=== PATIENT | male | born 1975 | race Caucasian/White ===

== ENCOUNTER 2016-07-15 16:11 | Emergency (ER) | payer OTHER ==
[2016-07-15 16:24] VITALS: BP 116/101; PULSE 68; RESP 20; TEMP 98.1
--- NOTE | 2016-07-15 16:34 | ED ---
Upper Extremity HPI - General Chief Complaint: Extremity Injury, Upper Stated Complaint: Left Arm Pain Time Seen by Provider: 07/15/16 16:26 Source: patient, RN notes reviewed Mode of arrival: ambulatory Limitations: no limitations - History of Present Illness Initial Comments: 41-year-old male presents for left elbow pain. Patient states he went to lift up his heavy lumbar just with his left arm he felt a pulling in the elbow. Patient states now he has pain with range of motion he has noticed that just tender when he tries to lift anything. Patient states he is left-handed. Patient is no other injury. Patient felt any head injury and loss of consciousness with this. Patient states he was concerned due to the continued pain so he thought that he should be evaluated.Patient denies any recent fever, chills, shortness of breath, chest pain, back pain, abdominal pain, nausea vomiting, numbness or tingling, dysuria or hematuria, constipation or diarrhea, headaches or visual changes, or any other current symptoms. Place: outdoors - Related Data Allergies Allergy/AdvReac Type Severity Reaction Status Date / Time No Known Allergies Allergy Verified 07/15/16 16:24 Review of Systems ROS Statement: Those systems with pertinent positive or pertinent negative responses have been documented in the HPI. ROS Other: All systems not noted in ROS Statement are negative. Past Medical History Past Medical History: No Reported History History of Any Multi-Drug Resistant Organisms: None Reported Past Surgical History: Hernia Repair Additional Past Surgical History / Comment(s): eye surgery Past Psychological History: No Psychological Hx Reported Smoking Status: Current every day smoker Past Alcohol Use History: None Reported Past Drug Use History: None Reported General Exam - General Exam Comments Initial Comments: General: The patient is awake and alert, in no distress, and does not appear acutely ill. Neck: The neck is supple, there is no tenderness. Cardiovascular: There is a regular rate and rhythm. No murmur, rub or gallop is appreciated. Respiratory: Lungs are clear to auscultation, respirations are non-labored, breath sounds are equal. No wheezes, stridor, rales, or rhonchi. Musculoskeletal: Patient active with pulses at the left upper extremity. Find motion of left shoulder left elbow and left wrist. Patient does have some pain over the brachial radialis muscle body. There is no laxity noted. Full range of motion. Decreased strength due to pain. Neurological: CN II-XII intact, There are no obvious motor or sensory deficits. Coordination appears grossly intact. Speech is normal. Skin: Skin is warm and dry and no rashes or lesions are noted. Psychiatric: Normal mood and affect. Limitations: no limitations Course Vital Signs 07/15/16 16:22 Temperature 98.1 F Pulse Rate 68 Respiratory 20 Rate Blood Pressure 116/101 O2 Sat by Pulse 99 Oximetry Procedures - Orthopedic Splinting/Casting Injury #1 Side: left Upper Extremity Injury Location: elbow Upper Extremity Immobilizer: Stephan wrap Medical Decision Making - Medical Decision Making 37-year-old male presents with what appears to be a left elbow strain. At this time we discussed using Motrin Tylenol for pain we discussed ice. We discussed resting it. We did give him follow-up to orthopedic discussed return parameters and on the patient's questions. He stated he understood and is negative and plan. He will be discharged home. - Radiology Data Radiology results: report reviewed, image reviewed Disposition Clinical Impression: Sprain of left elbow Disposition: HOME SELF-CARE Condition: Stable Instructions: Elbow Sprain (ED) Additional Instructions: Please use medication as discussed. Please follow up with family doctor if symptoms have not improved over the next two days. Please return to the emergency room if your symptoms increase or worsen or for any other concerns. Rest the area. Ice the area 20 min on 20 min off 4x a day. Compress the area with either the STEPHAN bandage or wearing the splint. Elevate the area above the heart whenever possible. Referrals: Evangelista Norton MD [Primary Care Provider] - 1-2 days Hollis Love MD [Medical Doctor] - 1-2 days Time of Disposition: 16:59
--- NOTE | 2016-07-15 16:57 | XR ---
EXAMINATION TYPE: XR elbow complete LT DATE OF EXAM: 07/15/2016 4:48 PM COMPARISON: NONE HISTORY: Lifting injury elbow pop TECHNIQUE: 3 view left elbow FINDINGS: No acute fractures evident. Alignment is normal. No elevation of the anterior and posterior fat pad is evident. Soft tissues appear within normal limits. IMPRESSION: 1. Normal left elbow
== END 2016-07-15 17:15 | disposition home or self-care (01) ==
LOC: EC 16:11
DX: S53.402A Unspecified sprain of left elbow, initial encounter (principal); F17.200 Nicotine dependence, unspecified, uncomplicated; X50.9XXA Other and unspecified overexertion or strenuous movements or postures, initial encounter; Y93.89 Activity, other specified
CPT/HCPCS: 99283